=== PATIENT | male | born 2000 | race Caucasian/White ===

== ENCOUNTER 2023-05-29 16:09 | Outpatient (CLI) | payer OTHER, SELFPAY ==
--- NOTE | 2023-05-29 | XRR_ITS ---
PROCEDURE INFORMATION: Exam: XR Left Foot Exam date and time: 05/29/2023 4:34 PM Age: 22 years old Clinical indication: Pain and injury or trauma; Sprain or strain; Left; Injury details: Lt midfoot/arch pain post twisting injury x 1 month ago; Intermittent swelling/brusing; Additional info: Left foot pain TECHNIQUE: Imaging protocol: Radiologic exam of the left foot. Views: 3 or more views. COMPARISON: No relevant prior studies available. FINDINGS: Bones/joints: Normal. Soft tissues: Normal. XR/XR foot LT min 3V* [id number] IMPRESSION: No acute findings.
== END 2023-05-29 16:10 | disposition home or self-care (01) ==
LOC: RAD 16:13
PROVIDERS: PCP Family Medicine; Visit Provider Family Medicine
DX: M79.672 Pain in left foot (principal)
CPT/HCPCS: 73630